=== PATIENT | male | born 1935 | race African-American/Black ===

== ENCOUNTER 2021-01-30 03:47 | Inpatient (IN) | payer OTHER ==
[2021-01-30] MEDS ORDERED: GLUCAGON 1 MG KIT ONE (03:59)
[2021-01-30 05:10] LABS: BASO % 0.2 % (0-2.0); EOS % 0.3 % (0-4.5); HEMATOCRIT 36.4 % (35.4-49); HEMOGLOBIN 12.5 GM/dL (11.7-16.9); LYMPH % 5.1 % (8-40); MCHC 34.4 g/dl (32.0-35.9); MEAN CELL VOLUME 95.7 fl (80-96); MONO % 4.6 % (3.8-10.2); NEUT % 89.8 % (42.8-82.8); PLATELET COUNT 182 10^3/uL (134-434); RDW 14.1 % (11.9-15.9); WHITE BLOOD COUNT 13.4 K/mm3 (4.0-10.0)
[2021-01-30 05:26] LABS: EPI CELLS 1 /uL (0-25.1); HYALINE CASTS 0 /uL (0-3.1); URINE APPEARANCE CLEAR; URINE BACTERIA 7 /uL (0-1359); URINE BILIRUBIN NEGATIVE (NEGATIVE); URINE COLOR YELLOW; URINE GLUCOSE (UA) 1+ (NEGATIVE); URINE KETONE NEGATIVE (NEGATIVE); URINE LEUK ESTERASE NEGATIVE (NEGATIVE); URINE NITRITE NEGATIVE (NEGATIVE); URINE PROTEIN NEGATIVE (NEGATIVE); URINE RBC 117 /uL (0-23.9); URINE UROBILINOGEN 0.2 mg/dL (0.2-1.0); URINE WBC 0 /uL (0-25.8)
[2021-01-30 05:34] LABS: BLOOD UREA NITROGEN 15.2 mg/dL (7-18); CALCIUM 8.2 mg/dL (8.5-10.1)
[2021-01-30 05:38] LABS: CREATININE 0.7 mg/dL (0.55-1.3)
[2021-01-30 05:39] LABS: BILIRUBIN,TOTAL 0.5 mg/dL (0.2-1); TOT PROT 6.4 g/dl (6.4-8.2)
[2021-01-30] MEDS ORDERED: CASIRIVIMAB/IMDEVIMAB 10 ML in SODIUM CHLORIDE 100 ML IVPB ONE (12:30)
[2021-01-30] MEDS: INSULIN SLIDING SCALE (NOVOLOG) 1 VIAL SQ SCH ×3 (12:33→21:09)
[2021-01-30] MEDS ORDERED: ALBUTEROL SO4 2.5/IPRATROPIUM 0.5 INH SOL 3 ML VIAL.NEB. NEB ONE (13:28)
[2021-01-30] MEDS ORDERED: HEPARIN NA (PORCINE) 5,000 UNITS/ML 1ML VIAL ONE (15:03)
[2021-01-30] MEDS ORDERED: LISINOPRIL 5 MG TABLET ONE (15:03)
[2021-01-30] MEDS: LISINOPRIL 10 MG TABLET PO SCH (15:12)
[2021-01-30] MEDS: HEPARIN NA (PORCINE) 5,000 UNITS/ML 1ML VIAL SQ SCH ×2 (15:12→21:08)
[2021-01-30] MEDS ORDERED: ACETAMINOPHEN 325 MG TABLET (FP) ONE (16:07)
[2021-01-30] MEDS: ACETAMINOPHEN 325 MG TABLET (FP) PO PRN ×2 (16:09→21:08)
[2021-01-30 22:28] VITALS: BMI 23.6
[2021-01-31] MEDS: HEPARIN NA (PORCINE) 5,000 UNITS/ML 1ML VIAL SQ SCH ×3 (06:26→21:18)
[2021-01-31] MEDS: INSULIN SLIDING SCALE (NOVOLOG) 1 VIAL SQ SCH ×4 (06:26→21:37)
[2021-01-31 08:13] LABS: BASO % 0.2 % (0-2.0); HEMATOCRIT 32.5 % (35.4-49); HEMOGLOBIN 11.1 GM/dL (11.7-16.9); LYMPH % 13.4 % (8-40); MCH 32.4 pg (25.7-33.7); MCHC 34.2 g/dl (32.0-35.9); MEAN CELL VOLUME 94.7 fl (80-96); MEAN PLT VOLUME 9.5 fl (7.5-11.1); MONO % 5.2 % (3.8-10.2); NEUT % 81.2 % (42.8-82.8); PLATELET COUNT 163 10^3/uL (134-434); RBC 3.43 M/mm3 (4.00-5.60); RDW 13.9 % (11.9-15.9); WHITE BLOOD COUNT 11.6 K/mm3 (4.0-10.0)
[2021-01-31 08:23] LABS: CHLORIDE 106 mmol/L (98-107); SODIUM 141 mmol/L (136-145)
[2021-01-31 08:26] LABS: ALBUMIN 1.7 g/dl (3.4-5.0); BLOOD UREA NITROGEN 20.8 mg/dL (7-18); CALCIUM 7.9 mg/dL (8.5-10.1); CO2 31 mmol/L (21-32); GLUCOSE,RANDOM 83 mg/dL (74-106); MAGNESIUM 1.8 mg/dL (1.8-2.4)
[2021-01-31 08:29] LABS: CREATININE 0.8 mg/dL (0.55-1.3); SGOT/AST 54 U/L (15-37); SGPT/ALT 41 U/L (13-61)
[2021-01-31 08:30] LABS: PHOSPHOROUS 2.8 mg/dL (2.5-4.9)
[2021-01-31 08:31] LABS: BILIRUBIN,TOTAL 0.6 mg/dL (0.2-1); TOT PROT 5.4 g/dl (6.4-8.2)
[2021-01-31 08:32] LABS: ALK PHOS 124 U/L (45-117)
[2021-01-31 08:52] LABS: ANION GAP 4 MMOL/L (8-16)
[2021-01-31] MEDS ORDERED: CLOPIDOGREL BISULFATE 75 MG TABLET (FP) PO SCH (10:00)
[2021-01-31] MEDS: POTASSIUM CHLORIDE TABS 20 MEQ TABLET.ER (FP) PO SCH ×2 (10:12→14:47)
[2021-01-31] MEDS: LISINOPRIL 10 MG TABLET PO SCH (10:13)
[2021-01-31] MEDS: amLODIPine BESYLATE 10 MG TABLET (FP) PO SCH (10:13)
[2021-01-31] MEDS ORDERED: PT OWN MED DRAWER 7, Y5N ONE (10:31)
[2021-01-31] MEDS ORDERED: INSULIN SLIDING SCALE (NOVOLOG) 1 VIAL SQ ONE (12:17)
[2021-01-31] MEDS: ACETAMINOPHEN 325 MG TABLET (FP) PO PRN (12:27)
[2021-02-01] MEDS: HEPARIN NA (PORCINE) 5,000 UNITS/ML 1ML VIAL SQ SCH ×3 (05:53→21:48)
[2021-02-01] MEDS: INSULIN SLIDING SCALE (NOVOLOG) 1 VIAL SQ SCH ×4 (06:55→21:47)
[2021-02-01 08:00] LABS: CALCIUM 8.4 mg/dL (8.5-10.1)
[2021-02-01 08:01] LABS: ALBUMIN 1.8 g/dl (3.4-5.0); BASO % 0.2 % (0-2.0); BLOOD UREA NITROGEN 15.8 mg/dL (7-18); EOS % 0.3 % (0-4.5); HEMATOCRIT 33.5 % (35.4-49); HEMOGLOBIN 11.3 GM/dL (11.7-16.9); LYMPH % 21.6 % (8-40); MCH 32.4 pg (25.7-33.7); MCHC 33.8 g/dl (32.0-35.9); MEAN CELL VOLUME 95.8 fl (80-96); MEAN PLT VOLUME 9.6 fl (7.5-11.1); MONO % 4.3 % (3.8-10.2); NEUT % 73.6 % (42.8-82.8); PLATELET COUNT 184 10^3/uL (134-434); WHITE BLOOD COUNT 8.6 K/mm3 (4.0-10.0)
[2021-02-01 08:04] LABS: CREATININE 0.7 mg/dL (0.55-1.3)
[2021-02-01 08:05] LABS: BILIRUBIN,TOTAL 0.5 mg/dL (0.2-1)
[2021-02-01 08:06] LABS: TOT PROT 5.9 g/dl (6.4-8.2)
[2021-02-01] MEDS: amLODIPine BESYLATE 10 MG TABLET (FP) PO SCH (10:40)
[2021-02-01] MEDS: LISINOPRIL 10 MG TABLET PO SCH (10:41)
[2021-02-02] MEDS: HEPARIN NA (PORCINE) 5,000 UNITS/ML 1ML VIAL SQ SCH ×2 (06:09→13:42)
[2021-02-02] MEDS: INSULIN SLIDING SCALE (NOVOLOG) 1 VIAL SQ SCH ×2 (06:09→11:28)
[2021-02-02 07:08] LABS: BASO % 0.2 % (0-2.0); EOS % 0.4 % (0-4.5); HEMATOCRIT 31.4 % (35.4-49); HEMOGLOBIN 10.6 GM/dL (11.7-16.9); LYMPH % 19.6 % (8-40); MCH 32.2 pg (25.7-33.7); MCHC 33.7 g/dl (32.0-35.9); MEAN CELL VOLUME 95.7 fl (80-96); MEAN PLT VOLUME 9.7 fl (7.5-11.1); MONO % 5.7 % (3.8-10.2); NEUT % 74.1 % (42.8-82.8); PLATELET COUNT 167 10^3/uL (134-434); RBC 3.28 M/mm3 (4.00-5.60); RDW 14.2 % (11.9-15.9); WHITE BLOOD COUNT 9.3 K/mm3 (4.0-10.0)
[2021-02-02 07:33] LABS: ALBUMIN 1.6 g/dl (3.4-5.0); MAGNESIUM 1.7 mg/dL (1.8-2.4)
[2021-02-02 07:36] LABS: CREATININE 0.6 mg/dL (0.55-1.3)
[2021-02-02 07:37] LABS: BILIRUBIN,TOTAL 0.5 mg/dL (0.2-1); TOT PROT 5.6 g/dl (6.4-8.2)
[2021-02-02 08:39] LABS: N-TERMINAL BNP 616.4 pg/ml (5-450)
[2021-02-02] MEDS ORDERED: MAGNESIUM OXIDE 400 MG TABLET (FP) PO ONE (09:02)
[2021-02-02] MEDS: amLODIPine BESYLATE 10 MG TABLET (FP) PO SCH (09:42)
[2021-02-02] MEDS: LISINOPRIL 10 MG TABLET PO SCH (09:42)
[2021-02-02 12:34] VITALS: PULSE 91; TEMP 98.7
[2021-02-02 14:15] VITALS: BP 143/72
== END 2021-02-02 17:30 | disposition home or self-care (01) | DRG 637 ==
LOC: JER 03:47 → JERBED 07:27 → OBSVTOIN 12:41 → J4S 19:53
PROVIDERS: ATTEND Nurse Practitioner Acute Care
PROC: XW033G6 Introduction of REGN-COV2 Monoclonal Antibody into Peripheral Vein, Percutaneous Approach, New Technology Group 6 (ICD-10-PCS; principal; 2021-01-30)
DX: E11.649 Type 2 diabetes mellitus with hypoglycemia without coma (principal); U07.1 COVID-19; I45.2 Bifascicular block; H40.9 Unspecified glaucoma; I10 Essential (primary) hypertension; D72.829 Elevated white blood cell count, unspecified; R52 Pain, unspecified; D64.9 Anemia, unspecified; E88.09 Other disorders of plasma-protein metabolism, not elsewhere classified; I11.0 Hypertensive heart disease with heart failure; I50.9 Heart failure, unspecified; I45.10 Unspecified right bundle-branch block; R41.82 Altered mental status, unspecified
CPT/HCPCS: 36415; 71045-TC-FY; 80048; 80053; 81003; 82550; 82553; 82728; 82962; 83036; 83615; 83735; 83880; 84100; 84443; 84484; 85025; 85379; 86140; 87804; 93005; 93010; 99285-25; C9803; G0378; J1644; Q0240; U0003; U0005